=== PATIENT | male | born 1965 | race Two or more races ===

== ENCOUNTER 2022-10-17 12:24 | Emergency (ER) | payer BC, OTHER ==
[~2022-10-17] VITALS: Ht 160 cm; Wt 68.5 kg
--- NOTE | 2022-10-17 12:52 | NUR ---
patient seen and assessed on bed hooked to monitor. patient complaining of back pain radiating to left leg
--- NOTE | 2022-10-17 13:16 | NUR ---
patient seen by EMD bedside. WILL RECOMMEND SOME MEDICATION
[2022-10-17] MEDS ORDERED: CYCLOBENZAPRINE 10 MG TABLET PO ONE (13:30)
[2022-10-17] MEDS ORDERED: HYDROCODONE/APAP 5/325MG TABLET PO ONE (13:30)
[2022-10-17] MEDS ORDERED: IBUPROFEN 600 MG TABLET PO ONE (13:30)
[2022-10-17] MEDS ORDERED: HYDROCODONE/APAP 5/325MG TABLET ONE (13:42)
[2022-10-17] MEDS ORDERED: CYCLOBENZAPRINE 10 MG TABLET ONE (13:43)
[2022-10-17] MEDS ORDERED: IBUPROFEN 600 MG TABLET ONE (13:44)
--- NOTE | 2022-10-17 13:51 | NUR ---
medications given as ordered by emd. patient daugther at bedside while patient is lying and resting
[2022-10-17] MEDS ORDERED: CYCL5TAB PO (13:56)
[2022-10-17] MEDS ORDERED: NAPR-1009 PO (13:56)
--- NOTE | 2022-10-17 14:09 | NUR ---
patient claimed pain is 5/10. no nausea nor dizziness
[2022-10-17 14:16] VITALS: BP 115/79
--- NOTE | 2022-10-17 14:17 | NUR ---
Patient discharged to home in stable condition, ambulating. Written and verbal after care instructions given. Patient verbalizes understanding of instruction.
== END 2022-10-17 14:17 | disposition home or self-care (01) ==
LOC: ER 12:24
DX: M54.42 Lumbago with sciatica, left side (principal); Z60.2 Problems related to living alone; Z79.899 Other long term (current) drug therapy